=== PATIENT | female | born 1960 | race Asian ===

== ENCOUNTER 2017-09-27 04:22 | Emergency (ER) | payer BC ==
--- NOTE | 2017-09-27 04:31 | PDOC ---
History of Present Illness - General Chief Complaint: Syncope/Near Syncope Stated Complaint: SYNCOPAL EPISODE Time Seen by Provider: 09/27/17 04:31 History Source: Patient Exam Limitations: No Limitations - History of Present Illness Initial Comments: 09/27/17 04:56 This is a 57-year-old female with history significant for vasovagal syncope several times in the past when she gets stressed out. Patient came in with her this morning was very stressed out as per her daughter who is a nurse patient had a near syncopal event at home secondary to her level of stress. In the emergency room her is being evaluated for chest pain and shortness of breath. Patient while at the bedside began to feel very cold and lightheaded so got up to try to walk out of the room and had a syncopal event. Patient did not fall down as staff saw her and lowered her to the floor. Patient was unresponsive for approximately 10 seconds. Patient rapidly regained consciousness and was without complaints. Patient denied any shortness of breath , chest pain, nausea, diaphoresis but did complain of a mild headache. Patient is also on Tamiflu for a recent diagnosis of influenza PAST MEDICAL HISTORY: Vasovagal syncope PAST SURGICAL HISTORY: no significant history FAMILY HISTORY: no pertinant history SOCIAL HISTORY: Pt lives with family and is employed. MEDICATIONS: reviewed ALLERGIES: As per nursing notes Review of Systems General: No fevers or chills, no weakness, no weight loss HEENT: No change in vision. No sore throat,. No ear pain CardioVascular: No chest pain or shortness of breath Respiratory:No cough, or wheezing. Gastrointestinal: no nausea, vomitting, diarrhea or constipation, No rectal bleeding Genitourinary: No dysuria, hematuria, or frequency Musculoskeletal: No joint or muscle pain or swelling Neurologic: No headache, vertigo, dizziness or loss of consciousness Psychiatric: nor depression Skin: No rashes or easy bruising Endocrine: no increased thirst or abnormal weight change Allergic: no skin or latex allergy All other systems reviewed and normal Exam: General: Well-nourished well-developed individual, no acute distress HEENT: Throat: Normal, tonsils normal, no erythema or exudate Neck: Supple, no meningeal signs, no lymphadenopathy Eyes::Pupils equal reactive and round, extraocular motion intact Chest: Nontender to palpation Cardiac: S1-S2 normal, regular rate and rhythm, no murmurs rubs or gallops Respiratory: There is some mild decrease in breath sounds on the right with some mild expiratory wheezing on the right Abdomen: Soft, nondistended, normal bowel sounds, nontender to palpation diffusely Extremities: Warm, dry, no cyanosis, clubbing, or edema Skin: No rashes Neuro: Alert and oriented x3, CN II - XII intact, nonfocal exam with normal strength, normal sensation, normal reflexes, normal gait, Psych: Normal mood and affect Medical decision making this is a 57-year-old female who has history of vasovagal syncope multiple times in the past. Patient had a syncope event here in the emergency room this morning. Patient is had a complete workup for her syncope in the past and was told was vasovagal secondary to her stress Will obtain workup to rule out other causes such as pneumonia, cardiac, but most likely vasovagal Labs ordered CBC, comp, PT, cardiac. EKG ordered Chest x-ray ordered I'll reassess and evaluate results of workup EKG shows normal sinus rhythm at a rate of 81 EKG was done at 5:29 AM there is normal intervals no acute ST-T wave changes it is a normal EKG Chest x-ray shows no acute pathology reassessment 6am Patient feels much better denies any symptoms at this time patient remains hemodynamically improved post 1 L of fluid with blood pressure now 117 systolic. Patient's oxygen saturation is 98% and patient feels back to her baseline Laboratory portion of workup is still pending Past History - Past Medical History Allergies/Adverse Reactions: Allergies Allergy/AdvReac Type Severity Reaction Status Date / Time No Known Allergies Allergy Verified 09/27/17 04:23 Home Medications: Ambulatory Orders Calcium Carbonate [Caltrate 600] 600 mg PO DAILY 08/20/11 Multivitamin [Daily Multiple Vitamin] 1 tab PO DAILY 08/20/11 *Physical Exam - Vital Signs Last Vital Signs Temp Pulse Resp BP Pulse Ox 98.8 F 80 13 111/72 99 09/27/17 04:23 09/27/17 06:03 09/27/17 06:03 09/27/17 06:03 09/27/17 06:03 ED Treatment Course - LABORATORY CBC & Chemistry Diagram: 09/27/17 04:50 09/27/17 04:50 - ADDITIONAL ORDERS Additional order review: Laboratory Results 09/27/17 09/27/17 04:50 04:50 Sodium 141 Potassium 4.4 Chloride 105 Carbon Dioxide 30 Anion Gap 6 L BUN 11 Creatinine 0.8 Creat Clearance w eGFR > 60 Random Glucose 123 H Calcium 8.2 L Total Bilirubin 0.5 AST 11 L ALT 20 Alkaline Phosphatase 68 Creatine Kinase 62 Troponin I < 0.02 Total Protein 6.3 L Albumin 3.4 09/27/17 04:50 RBC 4.43 MCV 83.5 MCHC 33.6 RDW 14.0 MPV 8.4 Neutrophils % 70.5 Lymphocytes % 17.8 Monocytes % 8.8 Eosinophils % 2.6 Basophils % 0.3 - RADIOLOGY Radiology Studies Ordered: Category Date Time Status CHEST X-RAY PORTABLE* [RAD] Stat Radiology 09/27/17 04:32 Taken - Medications Given in the ED: ED Medications Discontinued Medications Generic Name Dose Route Start Last Admin Trade Name Freq PRN Reason Stop Dose Admin Sodium Chloride 1,000 mls @ 1,000 mls/hr 09/27/17 04:38 09/27/17 04:55 Normal Saline - IV 09/27/17 05:37 1,000 mls/hr .Q1H ONE Administration *DC/Admit/Observation/Transfer Diagnosis at time of Disposition: Vasovagal syncope - Discharge Dispostion Disposition: HOME Condition at time of disposition: Fair - Referrals - Patient Instructions Printed Discharge Instructions: DI for Syncope in Adults (Fainting) Additional Instructions: Make sure you stay well hydrated. Return to the emergency department immediately with ANY new, persistent or worsening symptoms. Continue any medications as previously prescribed by your physician. You should follow up with your primary doctor as soon as possible regarding today's emergency department visit. . Please make sure your doctor reviews the results of your emergency evaluation. Thank you for coming to the Emergency Department today for your care. It was a pleasure to see you today. Please note that your evaluation is INCOMPLETE until you follow-up with your doctor. - Post Discharge Activity
[2017-09-27 04:35] VITALS: TEMP 98.8; BMI 23.0
[2017-09-27] MEDS ORDERED: SODIUM CHLORIDE 1,000 ML IV ONE ×2 (04:38→07:24)
[2017-09-27 06:02] LABS: BASO % 0.3 % (0-2.0); EOS % 2.6 % (0-4.5); HEMOGLOBIN 12.4 GM/dL (10.7-15.3); LYMPH % 17.8 % (8-40); MCH 28.1 pg (25.7-33.7); MCHC 33.6 g/dl (32.0-36.0); MEAN CELL VOLUME 83.5 fl (80-96); MEAN PLT VOLUME 8.4 fl (7.5-11.1); MONO % 8.8 % (3.8-10.2); NEUT % 70.5 % (42.8-82.8); PLATELET COUNT 198 K/MM3 (134-434); RBC 4.43 M/mm3 (3.60-5.2); WHITE BLOOD COUNT 8.6 K/mm3 (4.0-10.0)
[2017-09-27 06:44] LABS: ALBUMIN 3.4 g/dl (3.4-5.0); ANION GAP 6 (8-16); BILIRUBIN,TOTAL 0.5 mg/dL (0.2-1.0); BLOOD UREA NITROGEN 11 mg/dL (7-18); CALCIUM 8.2 mg/dL (8.5-10.1); CHLORIDE 105 mmol/L (98-107); CO2 30 mmol/L (21-32); CREATININE 0.8 mg/dL (0.55-1.02); GLUCOSE,RANDOM 123 mg/dL (74-106); POTASSIUM 4.4 mmol/L (3.5-5.1); SGOT/AST 11 U/L (15-37); SGPT/ALT 20 U/L (12-78); SODIUM 141 mmol/L (136-145); TOT PROT 6.3 g/dl (6.4-8.2)
[2017-09-27 06:45] LABS: ALK PHOS 68 U/L (45-117)
[2017-09-27 07:43] VITALS: BP 104/67; PULSE 82
--- NOTE | 2017-09-27 16:52 | EKG ---
Test Reason : Blood Pressure : / mmHG Vent. Rate : 081 BPM Atrial Rate : 081 BPM P-R Int : 156 ms QRS Dur : 090 ms QT Int : 402 ms P-R-T Axes : 060 061 026 degrees QTc Int : 466 ms NORMAL SINUS RHYTHM NONSPECIFIC ST AND T WAVE ABNORMALITY NO PREVIOUS ECGS AVAILABLE Confirmed by MD AFRICA, LILA ([id number]) on 09/27/2017 4:52:12 PM Referred By: DR WILSON Confirmed By:LILA LEGER MD
== END 2017-09-27 07:46 | disposition home or self-care (01) ==
LOC: FER 04:22
PROC: 3E0337Z Introduction of Electrolytic and Water Balance Substance into Peripheral Vein, Percutaneous Approach (ICD-10-PCS; principal; 2017-09-27)
DX: R55 Syncope and collapse (principal)
CPT/HCPCS: 36415; 71045-TC-FY; 80053; 82550; 84484; 85025; 93005; 99284-25; J7030

== ENCOUNTER 2021-12-21 22:30 | Emergency (ER) | payer BC ==
[2021-12-21 22:41] VITALS: BP 128/70; PULSE 78; TEMP 97.8; BMI 21.7
== END 2021-12-21 23:14 | disposition home or self-care (01) ==
LOC: FER 22:30
DX: S93.402A Sprain of unspecified ligament of left ankle, initial encounter (principal); S80.02XA Contusion of left knee, initial encounter; W19.XXXA Unspecified fall, initial encounter
CPT/HCPCS: 73562-TC-LT-FY; 73610-TC-LT-FY; 99284-25

== ENCOUNTER 2023-09-07 17:39 | Emergency (ER) | payer BC ==
[2023-09-07 17:51] VITALS: BP 165/89; PULSE 59; RESP 16; TEMP 98.2; BMI 20.1
== END 2023-09-07 18:24 | disposition home or self-care (01) ==
LOC: FER 17:39
DX: S61.412A Laceration without foreign body of left hand, initial encounter (principal); W26.8XXA Contact with other sharp object(s), not elsewhere classified, initial encounter
CPT/HCPCS: 99282-25